=== PATIENT | male | born 2000 | race Caucasian/White ===

== ENCOUNTER 2025-01-14 17:21 | Emergency (ER) | payer BC, SELFPAY ==
[2025-01-14] MEDS ORDERED: IBUPROFEN 200 MG TAB PO ONE (17:45)
--- NOTE | 2025-01-14 18:19 | RAD REPORT ---
Exam:Hand Right 3 View HISTORY: Right hand pain FINDINGS: Fracture fifth metacarpal neck. Faint lucency is seen so presumably this is acute. This should be cor related clinically. No displacement. There is mild angulation at the fracture site. No dislocation
--- NOTE | 2025-01-14 19:02 | ER ---
Nurse's Notes [facility] Name: Valeriy Mcnamara Age: 24 yrs Sex: Male : 2000 Arrival Date: 01/14/2025 Time: 17:21 Bed 9 Private MD: Diagnosis: Displaced fracture of base of fifth metacarpal bone, right hand, initial encounter for closed fracture Presentation: 01/14 17:38 Chief complaint: Patient states: reports having 7/10 pain to the R pinky finger after iw using a punching bag working out an hour ago. Coronavirus screen: At this time, the client does not indicate any symptoms associated with coronavirus-19. Ebola Screen: No symptoms or risks identified at this time. Initial Sepsis Screen: Does the patient meet any 2 criteria? No. Patient's initial sepsis screen is negative. Does the patient have a suspected source of infection? No. Patient's initial sepsis screen is negative. Risk Assessment: Do you want to hurt yourself or someone else? Patient reports no desire to harm self or others. Onset of symptoms was January 14, 2025. 17:38 Method Of Arrival: Ambulatory iw 17:38 Acuity: JULIO 4 iw Triage Assessment: 17:41 General: Appears in no apparent distress. Behavior is calm, cooperative, appropriate iw for age. Pain: Complains of pain in dorsal aspect of proximal phalanx of right ring finger, dorsal aspect of middle phalanx of right little finger, dorsal aspect of proximal phalanx of right little finger and right little fingernail Pain currently is 7. out of 10 on a pain scale. Quality of pain is described as aching, Pain began 1 hour ago. Aggravated by repositioning. Musculoskeletal: Range of motion: limited in right hand Swelling present in right hand Reports pain in right hand. Injury Description: was working out with a punching bag one hour ago. Historical: - Allergies: 17:41 POISON JOSE; iw - Home Meds: 17:41 None [Active]; iw - PMHx: 17:41 None; iw - PSHx: 17:41 None; iw - Immunization history:: Adult Immunizations unknown. - Infectious Disease History:: Denies. - Social history:: Smoking status: Patient reports the use of cigarette tobacco products, Reported history of juuling and/or vaping. Screenin:08 [facility] ED Fall Risk Assessment (Adult) History of falling in the last 3 months, iw including since admission No falls in past 3 months (0 pts) Confusion or Disorientation No (0 pts) Intoxicated or Sedated No (0 pts) Impaired Gait No (0 pts) Mobility Assist Device Used No (0 pt) Altered Elimination No (0 pt) Score/Fall Risk Level 0 - 2 = Low Risk Oriented to surroundings, Maintained a safe environment. Abuse screen: Denies threats or abuse. Nutritional screening: No deficits noted. Tuberculosis screening: No symptoms or risk factors identified. Assessment: 18:07 General: Appears in no apparent distress. Behavior is calm, cooperative. Pain: iw Complains of pain in right hand. Neuro: Level of Consciousness is awake, alert, obeys commands, Oriented to person, place, time, situation. Respiratory: Respiratory effort is even, unlabored, Respiratory pattern is regular, symmetrical. Musculoskeletal: Range of motion: limited in MCP of right index finger, MCP of right middle finger, MCP of right ring finger and MCP of right little finger Reports pain in right hand. 19:08 Reassessment: Patient appears in no apparent distress at this time. Patient and/or kj2 family updated on plan of care and expected duration. Pain level reassessed. Patient is alert, oriented x 3, equal unlabored respirations, skin warm/dry/pink. Vital Signs: 17:38 BP 139 / 87; Pulse 77; Resp 18; Temp 98(TE); Pulse Ox 100% on R/A; Weight 68.04 kg; iw Height 5 ft. 10 in. ; Pain 7/10; 19:08 BP 134 / 74; Pulse 70; Resp 20; Temp 98; Pulse Ox 100% on R/A; kj2 17:38 Body Mass Index 21.52 (68.04 kg, 177.8 cm) iw 17:38 Pain Scale: Adult iw ED Course: 17:25 Patient arrived in ED. mr 17:25 Grabiel Anton DO is Attending Physician. ms3 17:41 Triage completed. iw 17:51 Annmarie Jacobson, RN is Primary Nurse. iw 18:07 Hand Right 3 View XRAY In Process Unspecified. EDMS 18:08 Patient has correct armband on for positive identification. Provided Education on: wait iw time . 18:57 Orthoglass splint: Ulnar gutter/Boxer splint applied on right forearm. nh2 19:00 Madi Fowler MD is Referral Physician. ms3 19:06 No provider procedures requiring assistance completed. kj2 19:08 Patient did not have IV access during this emergency room visit. kj2 Administered Medications: 17:55 Drug: Ibuprofen PO 600 mg PO once Route: PO; iw 19:06 Follow up: Response: No adverse reaction kj2 Medication: 18:08 VIS not applicable for this client. iw Outcome: 19:01 Discharge ordered by . ms3 19:07 Discharged to home ambulatory, kj2 19:07 Condition: stable 19:07 Discharge instructions given to patient, Instructed on discharge instructions, follow up and referral plans. Demonstrated understanding of instructions, follow-up care, 19:13 Patient left the ED. kj2 Signatures: Dispatcher [employer] EDMS Serene Reaves, Reg Reg Annmarie Jacobson, RN RN iw Grabiel Anton DO DO ms3 Ni Medina RN RN kj2 Bashir Ventura Jr RN RN nh2
--- NOTE | 2025-01-14 19:02 | EDPHYS ---
Physician Documentation [facility] Name: Valeriy Mcnamara Age: 24 yrs Sex: Male : 2000 Arrival Date: 01/14/2025 Time: 17:21 Bed 9 Private MD: ED Physician Grabiel Anton HPI: 01/14 17:40 This 24 yrs old Male presents to ER via Unassigned with complaints of Hand Injury. ms3 17:40 24-year-old male with no past medical history presents to the emergency department for ms3 right hand pain status post punching a punching bag at work out. Patient states he is having pain over the fifth metacarpal. Patient states pain is 7/10 and movement makes pain worse. Patient denies numbness to the finger. Historical: - Allergies: 17:41 POISON JOSE; iw - Home Meds: 17:41 None [Active]; iw - PMHx: 17:41 None; iw - PSHx: 17:41 None; iw - Immunization history:: Adult Immunizations unknown. - Infectious Disease History:: Denies. - Social history:: Smoking status: Patient reports the use of cigarette tobacco products, Reported history of juuling and/or vaping. ROS: 17:40 Constitutional: Negative for fever, and chills. Cardiovascular: Negative for chest ms3 pain, and palpitations. Respiratory: Negative for shortness of breath, cough, wheezing, and pleuritic chest pain, Abdomen/GI: Negative for abdominal pain, nausea, vomiting, diarrhea, and constipation, 17:40 MS/extremity: Positive for pain, swelling, tenderness, of the right hand, Exam: 17:40 Constitutional: This is a well developed, well nourished patient who is awake, alert, ms3 and in no acute distress. Chest/axilla: Normal chest wall appearance and motion. Nontender with no deformity. Cardiovascular: Regular rate and rhythm with a normal S1 and S2. No gallops, murmurs, or rubs. Normal PMI, no JVD. No pulse deficits. Respiratory: Lungs have equal breath sounds bilaterally, clear to auscultation and percussion. No rales, rhonchi or wheezes noted. No increased work of breathing, no retractions or nasal flaring. Abdomen/GI: Soft, non-tender, with normal bowel sounds. No distension or tympany. No guarding or rebound. No evidence of tenderness throughout. 17:40 Musculoskeletal/extremity: Extremities: noted in the right 5th Metacarpal: pain, swelling, tenderness, Vital Signs: 17:38 BP 139 / 87; Pulse 77; Resp 18; Temp 98(TE); Pulse Ox 100% on R/A; Weight 68.04 kg; iw Height 5 ft. 10 in. ; Pain 7/10; 19:08 BP 134 / 74; Pulse 70; Resp 20; Temp 98; Pulse Ox 100% on R/A; kj2 17:38 Body Mass Index 21.52 (68.04 kg, 177.8 cm) iw 17:38 Pain Scale: Adult iw MDM: 17:35 Medical Screening Exam initiated ms3 17:40 Differential diagnosis: closed fracture, contusion. ms3 19:10 Data reviewed: vital signs, nurses notes, radiologic studies, and as a result, I will ms3 discharge patient. I considered the following discharge prescriptions or medication management in the emergency department Medications were administered in the Emergency Department. See MAR. Independent interpretation of the following test(s) in the Emergency Department X-Ray: My interpretation is Right hand x-ray images reviewed reveal 5th metacarpal fracture. Counseling: I had a detailed discussion with the patient and/or guardian regarding the historical points, exam findings, and any diagnostic results supporting the discharge/admit diagnosis, radiology results, the need for outpatient follow up, to return to the emergency department if symptoms worsen or persist or if there are any questions or concerns that arise at home. Special discussion: I discussed with the patient/guardian in detail that at this point there is no indication for admission to the hospital. It is understood, however, that if the symptoms persist or worsen the patient needs to return immediately for re-evaluation. ED course: Discussed right hand x-ray results with patient. Patient placed in ulnar gutter by machines technician. Splint evaluated afterwards and patient's hand remained neurovascularly intact. Patient to follow-up Dr. Zeng in 2 to 3 days. Patient understands agrees with plan. All questions were answered. Return precautions discussed include worsening symptoms, or any other concerns. 01/14 17:40 Order name: Hand Right 3 View XRAY; Complete Time: 18:29 ms3 08/18 18:30 Order name: Splint - Ulnar Gutter; Complete Time: 18:55 ms3 Administered Medications: 17:55 Drug: Ibuprofen PO 600 mg PO once Route: PO; iw 19:06 Follow up: Response: No adverse reaction kj2 Disposition Summary: 01/14/25 19:01 Discharge Ordered Notes: Location: Home ms3 Condition: Stable ms3 Diagnosis - Displaced fracture of base of fifth metacarpal bone, right hand, initial encounter ms3 for closed fracture Followup: ms3 - With: Madi Fowler MD - When: 2 - 3 days - Reason: Recheck today's complaints Discharge Instructions: - Discharge Summary Sheet ms3 - Metacarpal Fracture ms3 Forms: - Medication Reconciliation Form ms3 - Antibiotic Education ms3 - Prescription Opioid Use ms3 - Patient Portal Instructions ms3 - Leadership Thank You Letter ms3 Signatures: Dispatcher [employer] Annmarie Garcias RN RN iw Grabiel Anton DO DO ms3 Ni Medina RN kj2
[2025-01-15 01:03] VITALS: TEMP 98; O2SAT 100
[2025-01-15 01:04] VITALS: BP 134/74
== END 2025-01-14 19:13 | disposition home or self-care (01) ==
LOC: ER 17:21
PROC: 2W3EX1Z Immobilization of Right Hand using Splint (ICD-10-PCS; principal; 2025-01-14)
DX: S62.316A Displaced fracture of base of fifth metacarpal bone, right hand, initial encounter for closed fracture (principal)
CPT/HCPCS: 99283